=== PATIENT | female | born 1975 | race Caucasian/White ===

== ENCOUNTER 2016-06-18 18:42 | Emergency (ER) | payer OTHER ==
[~2016-06-18 18:42] MED LIST: ALBUTEROL17 GM INH; AMBIEN; AMBIEN PO; AMBIEN10 MG PO; ANSAID100 MG PO; BACTRIM DS TABL1 TA1 PO; CIPRO250 M1 PO; DICLOFENAC PO; DIFLUCAN PO; ERY-TAB500 MG PO; FLAGYL 500 MG PO; FLEXERIL10 MG PO; HYDROCODON-ACE1 EAC3; IBUPROFEN800 MG PO; KEFLEX PO; LIDODERM30 EA TOP; LORTAB 10-5001 EACH PO; MACROBID100 M1 PO; MACROBID100 MG PO; METROGEL55 GM TP; NEURONTIN; NEURONTIN300 MG; NEURONTIN300 MG PO; NEURONTIN800 MG PO; NO MEDICATIONS; NORCO 7.5-3251 EACH PO; PERCOCET 10/3251 TAB PO; PERCOCET10; PHENERGAN25 MG PO; PREDNISONE PO; PREDNISONE10 MG/DOSE PO; PRILOSEC PO; PYRIDIUM PO; PYRIDIUM100 MG PO; RONDEC-DM ORAL30 ML PO; TOPAMAX; VALIUM10 MG; VALIUM10 MG PO; VIBRAMYCIN100 M1 PO; VICODIN 5-3001 EACH PO; VOLTAREN75 MG PO; ZOFRAN ODT4 MG PO; ZOFRAN ODT4 MG SL
[2016-06-18 18:58] LABS: URINE SOURCE CLEAN CATCH
[2016-06-18 19:01] LABS: URINE APPEARANCE HAZY; URINE BILIRUBIN NEG (NEG); URINE BLOOD 2+ (NEG); URINE COLOR YELLOW; URINE GLUCOSE NEG (NORM); URINE KETONE NEG (NEG); URINE LEUKOCYTE ESTERASE 3+ (NEG); URINE NITRATE POS (NEG); URINE PH 5.5 (5-8); URINE PROTEIN 1+ (NEG); URINE SPECIFIC GRAVITY >=1.030 (1.003-1.035); URINE UROBILINOGEN 0.2 MG/DL (NORM)
[2016-06-18 19:21] LABS: MICRO INDICATED? YES
[2016-06-18 19:22] LABS: CULTURE INDICATED? YES; URINE BACTERIA 2+ (NEG); URINE MUCUS PRESENT; URINE RBC 25-50 /[HPF] (0-2); URINE SQUAMOUS EPITHELIAL CELL MODERATE /[HPF]; URINE WBC INNUM /[HPF] (0-5)
== END 2016-06-18 19:22 | disposition left against medical advice (07) ==
LOC: SED 18:42
PROVIDERS: Emergency Medicine
DX: R10.9 Unspecified abdominal pain (principal); G43.909 Migraine, unspecified, not intractable, without status migrainosus; F41.9 Anxiety disorder, unspecified; Z88.0 Allergy status to penicillin
CPT/HCPCS: 81003; 84703; 87086; 87088; 87186; 99284